=== PATIENT | male | born 1960 | race African-American/Black ===

== ENCOUNTER 2016-06-18 11:24 | Emergency (ER) | payer BC ==
[2016-06-18] MEDS ORDERED: DUONEB INH ONE (11:52)
[2016-06-18] MEDS ORDERED: NEB-ALBUTEROL 2.5 MG/3 ML INH ONE (11:53)
[2016-06-18] MEDS ORDERED: METHYLPRED SOD SUCC 125 MG/2 ML VIAL ONE (13:10)
== END 2016-06-18 14:11 | disposition home or self-care (01) ==
LOC: ER 11:24
DX: J45.21 Mild intermittent asthma with (acute) exacerbation (principal); E11.9 Type 2 diabetes mellitus without complications
CPT/HCPCS: 36415; 71010; 80053; 82553; 83880; 84484; 85025; 93005; 94640; 96372